=== PATIENT | male | born 1990 | race Caucasian/White ===

== ENCOUNTER 2016-04-21 11:53 | Outpatient (CLI) | payer OTHER | END 2016-04-21 11:54 | disposition home or self-care (01) | DX: S83.211A Bucket-handle tear of medial meniscus, current injury, right knee, initial encounter (principal) ==

== ENCOUNTER 2017-06-04 09:58 | Outpatient (CLI) | payer OTHER ==
--- NOTE | 2017-06-04 20:50 | MRI Preliminary Report ---
Exam: MRI KNEE LT W/O IMPRESSION: 1. Possible subtle radial tear versus early degenerative fraying anterior horn medial meniscus. 2. Minimal patellar tendinopathy. 3. Cruciate and collateral ligaments are intact. 4. No joint effusion. [facility] SE[facility] SITE ID: [id number]
--- NOTE | 2017-06-04 22:46 | MRI Report ---
EXAM: LEFT KNEE MRI WITHOUT CONTRAST EXAM DATE: 06/04/2017 10:15 AM. CLINICAL HISTORY: Pain in left knee. Patient reports pain for 3 months, medial pain worse. No recent trauma. COMPARISON: None. TECHNIQUE: Multiplanar, multisequence T1-weighted and fluid-sensitive sequences of the knee without c ontrast. Other: None. FINDINGS: Bones: No fractures or subluxations. No marrow edema. No bone lesions. Articular Cartilage: Unremarkable. Medial Meniscus: Mild blunting at the free edge anterior horn (coronal images 13 and sagittal images 18 and 19). No discrete flipped fragment visualized. Lateral Meniscus: The lateral meniscus is intact. Cruciate Ligaments: The anterior and posterior cruciate ligaments are intact. Collateral Ligaments: The medial collateral and lateral collateral ligamentous structures are intact. Tendons: Minimal patellar tendinopathy. The quadriceps, semimembranosus, and popliteus tendons are un remarkable. Musculature: No edema or fatty atrophy. Other: No effusion. No popliteal cyst. No loose bodies. The medial and lateral retinacula are intact . Subcutaneous soft tissues and fat pads are unremarkable. Mildly prominent lymph node in the poplite al fossa measuring 1.0 cm in short axis dimension. This is nonspecific and may be reactive. IMPRESSION: 1. Possible subtle radial tear versus early degenerative fraying at the anterior horn medial meniscus . 2. Minimal patellar tendinopathy. 3. Cruciate and collateral ligaments are intact. 4. No joint effusion. [facility] SECTION Referring Provider Line: [phone] SITE ID: [id number]
== END 2017-06-04 09:59 | disposition home or self-care (01) ==
LOC: DI 09:58
PROVIDERS: ATTEND Family Medicine
DX: M67.864 Other specified disorders of tendon, left knee (principal)